=== PATIENT | female | born 1975 ===

== ENCOUNTER 2017-05-10 10:59 | Day surgery (SDC) | payer BC, OTHER ==
[2017-05-07 09:20] VITALS: BMI 28.3
[2017-05-10] MEDS ORDERED: Propofol 10 mg/ml Inj (20 ML) ONE (11:18)
[2017-05-10] MEDS ORDERED: Midazolam 2 MG/2 ML VIAL ONE (11:18)
[2017-05-10] MEDS ORDERED: ePHEDrine 50 mg/ml Inj ONE ×2 (11:18→13:02)
[2017-05-10] MEDS ORDERED: Rocuronium 10 mg/ml (5 ml) ONE (11:18)
[2017-05-10] MEDS ORDERED: Succinylcholine 200 mg/10 ml Inj IV ONE (11:20)
[2017-05-10] MEDS ORDERED: Lidocaine 4% (Laryng-O-Jet) Kit MM ONE (11:22)
[2017-05-10] MEDS ORDERED: Bupivacaine 0.5% Inj(30mL) ONE (11:23)
[2017-05-10 11:31] LABS: BASO # 0.1 K/uL (0.0-0.2); BASO % 1.2 % (0.0-2.0); EOS # 0.1 K/uL (0.0-0.7); EOS % 1.4 % (0.0-4.0); HEMATOCRIT 37.7 % (34.0-47.0); LYMPH # 1.7 K/uL (1.0-4.3); LYMPH % 35.1 % (20.0-40.0); MEAN CELL VOLUME 80.7 fl (81.0-99.0); MEAN CORPUSCULAR HEMOGLOBIN 26.8 pg (27.0-31.0); MEAN CORPUSCULAR HGB CONC 33.3 g/dL (33.0-37.0); MEAN PLATELET VOLUME 7.9 fl (7.2-11.7); MONO # 0.3 K/uL (0.0-0.8); NEUT # 2.7 K/uL (1.8-7.0); NEUT % 56.3 % (50.0-75.0); NRBC % 0.2 % (0.0-0.0); RED CELL DISTRIBUTION WIDTH 14.1 % (11.5-14.5); WHITE BLOOD COUNT 4.8 K/uL (4.8-10.8)
[2017-05-10] MEDS ORDERED: Lactated Ringer's 1,000 ML IV ONE ×2 (12:30→12:40)
[2017-05-10] MEDS ORDERED: Dexamethasone 4 mg/1 ml ONE (13:02)
[2017-05-10] MEDS ORDERED: Neostigmine Methylsulfate 3mg/3ml Syringe IV ONE (14:21)
[2017-05-10] MEDS: HYDROmorphone 0.5 mg/0.5 ml ISec IVP PRN ×4 (15:37→16:02)
[2017-05-10] MEDS: Lactated Ringer's 1,000 ML IV SCH ×2 (16:16→16:27)
[2017-05-10 16:27] VITALS: O2SAT 100
[2017-05-10 17:23] VITALS: RESP 18
[2017-05-10] MEDS ORDERED: Oxycodone/Acetaminophen 5/325 mg Tab PO ONE ×2 (18:12→18:19)
[2017-05-10 19:10] VITALS: BP 109/69; PULSE 88; TEMP 98.1
--- NOTE | 2017-05-17 10:56 | PCM.OP ---
Operative Report - Operative Report Date of Surgery/Procedure: 05/10/17 Time of Surgery/Procedure: 08:00 Surgeon: Dr. Shaun Thornton Colorist Dyer: Dr. Huey Hall Anesthesia/Sedation: general/Dr. Franco Pre-Operative Diagnosis: Endometriosis and abdominal pain Post-Operative Diagnosis: same Indication for Surgery: Endometriosis and abdominal pain Operative Findings: same Procedure/Operation Description: 1-Lysis of intestinal, abdominal wall and omental adhesions. Brief Histroy: This 42 year old woman was brought to the operating room by Dr. Hall when he intiated the laparoscopic portion of the robotic procedure. Upon enetering with videoscopy multiple dense adhesions were imediately encountered obsuring the possibilty to place the remaining tocars. Intraoperative general surgey consultation was obtained. Description of the Procedure: Dr. Rafael woodard intiated the procedure and after placing the umbilical trocar multiple dense adhsions invovlving the intestines, abdomial wall and omentum were encountered. A small 5 mm torcar was pleced stratigically and with the aid of electrocautery using blunt and using blunt and sharp dissection the adhesions were lysed including small bowel and omentum while these from the anterior abdominal wall. Once this was completed the remianing trocars were placed and the operation was turned over to Dr. Hall ( separate dictation Dr. Hall). Estimated Blood Loss: 5 cc Complications: none Discharge & Condition: stable
--- NOTE | 2017-05-19 22:53 | OP ---
PROCEDURE DATE: 05/10/2017 SURGEON: Dr. Huey Hall. CLINICAL DATA RESEARCH: Dr. Shaun Thornton MD PREOPERATIVE DIAGNOSES: Pelvic pain, bladder pain, abdominal pain, back pain, ovarian remnant syndrome, endometriosis of the pelvis, pudendal nerve entrapment, endometriosis, and dyspareunia. POSTOPERATIVE DIAGNOSES: Pelvic pain, bladder pain, abdominal pain, back pain, ovarian remnant syndrome, endometriosis of the pelvis, pudendal nerve entrapment, endometriosis, ovarian remnant syndrome, pelvic adhesions, and dyspareunia. PROCEDURE: Cystoscopy with bilateral stent placement and injection of IC green dye in the left and right ureter. Robotic laparoscopy, Excision of endometriosis, bilateral ureterolysis left pudendal neurolysis, Right Sapligo oophorectomy. separately to be dictated by Dr. Thornton is a lysis of adhesion. COMPLICATIONS: None. SPECIMENS: Multiple specimens including left periureteral endometriosis, vaginal cuff endometriosis, left pelvic side wall endometriosis, right vaginal cuff endometriosis, right pelvic side wall endometriosis and right ovary and tube. INDICATION FOR THE PROCEDURE: This is a patient with a very long history of pelvic pain who underwent multiple surgical procedures by multiple surgeons to try to address her pain. She has a known history of endometriosis and she had undergone a hysterectomy and allegedly a bilateral oophorectomy by other surgeons, which had failed to address her problems. She persisted having both anterior and posterior pain, also like pain sitting down consistent with a pudendal neuralgia, which was not relieved by multiple treatments including injections of nerve blocks and multiple medical therapies. Prior to the surgery, the patient was counseled with how complicated her surgery was going to be that she was a risk for both bowel injury as well as nerve injury. She also understood that the surgery may or may not ameliorate her symptoms and that because of her prior history of surgeries, it was necessary to identify ureters and place stents given the complication of this operation. The patient verbalized an understanding, was seen multiple times in the office and prior to the surgery, she reconfirmed the desire to move forward with the surgery. She signed the consent and she was taken to the OR. DESCRIPTION OF THE PROCEDURE: After adequate anesthesia was obtained, the patient was placed in the dorsal lithotomy position. She was prepped and draped. The surgeon gown and gloved. At this point, a time out was taken after she was placed under anesthesia and the procedure was commenced. The cystoscope was introduced into the bladder under direct visualization. The bladder was distended and irvin cystoscopy was performed, with attention to both ureteral orifices which were normal anatomical position. The left ureteral orifice was then catheterized with a British open-ended urethral catheter. A solution of ICG was then injected for a total of 4 mL in the left ureter after the ureteral catheter stent was advanced into the distal ureter. The ureteral catheter was then removed. Attention was paid to the right ureteral orifice. At this point, a ureteral catheter was advanced to the level of the right distal ureter. An additional 4 mL of IC green were injected in to the right ureter. The ureteral catheter was then removed. The bladder was then inspected and noted to be free of tumor, stones, or bleeding sources. Also there was no evidence of interstitial cystitis. The cystoscope was then removed and a 16-British Menard catheter was then placed. At this point, attention was on the abdominal area where a very careful open laparoscopy technique was performed. An incision was made under the umbilicus and through this incision, a progressive dissection was performed and the fascia was entered. The peritoneum was entered in a blunt fashion and a blunt trocar was placed. At this point, multiple adhesions were noticed in the pelvis including the extensive adhesions with the omentum. A right lower quadrant trocar was placed in an open area with less adhesions and a left upper quadrant trocar was also applied as well as a left main quadrant. At this point, an extensive lysis of adhesions was performed by general surgeon, Dr. Shaun Thornton who was called then as the adhesions were quite extensive. He will dictate these adhesions separately. At this point, attention was in the pelvis. Upon looking at the pelvis, we immediately noticed multiple areas lined with endometriosis typical type lesions, brown lesions, as well as white lesions, most of them active, most of them with a granulomatous type of appearance. The first part of procedure was on the left hand side where the cuff appeared to be bundled and retracted and at this point utilizing florescent, the ureter was identified. The peritoneum was incised avoiding the ureter and a dissection was made dissecting off an area of endometriosis all the way deep into the pelvis, freeing the left perirectal space, although in a deep way all the way down to the pudendal nerve area and an area of granulomatous tissue containing endometriosis and an aggregate of inflammatory tissue was removed and sent to pathology. Upon inspection, the area appeared to be free on compression and the nerve bundle appeared to be decompressed. At this point, attention was on the vaginal cuff where again an area of endometriosis was identified after dissecting the bladder off, this whole area of granulomatous area was also excised. Attention was then on the left pelvic side wall where after identifying the ureter, the retroperitoneal space was entered. Ureter was lateralized and dissected and an area of peritoneum inflamed was also excised. Attention was then on the right pelvic side wall where again utilizing fluorescent, the peritoneum was entered. The ureter was identified, dissected. It was a quite complex dissection as the ureter was quite "sticky" given the vision prior to surgery, so it was laborious dissection and an area of peritoneum containing inflammatory type endometriosis was also excised. At this point, attention was on the right pelvic side wall where a mass that appeared to be on a ovarian remnant was on the pelvic rim. This was elevated and a progressive dissection was performed where the mass was dissected and lysed off the underlying peritoneum and right on top of the iliac vessels and with a extra careful dissection, the vascular bundle was coagulated and the sample was sent to pathology. It was ovarian remnant with fallopian tube . At this point, she was checked for hemostasis and appeared to be excellent. The robot was undocked. The abdomen was desufflated. The instruments were removed. The incision was closed in layers with 0 PDS for the fascia and 4-0 Monocryl for the skin. At the end of the procedure, all tapes and instruments counts were correct. The patient tolerated the procedure well and was taken to recovery room in excellent condition. Huey Hall MD MICHAELA
== END 2017-05-10 19:46 | disposition home or self-care (01) ==
LOC: H.OPSURG 10:59
PROVIDERS: ATTEND Obstetrics & Gynecology Reproductive Endocrinology
DX: R10.2 Pelvic and perineal pain (principal); R39.89 Other symptoms and signs involving the genitourinary system; N80.3 Endometriosis of pelvic peritoneum; N94.19 Other specified dyspareunia; N73.6 Female pelvic peritoneal adhesions (postinfective)
CPT/HCPCS: 36415; 49329; 52007; 58661; 58662; 64708; 85025; 86850; 86900; 88305; C1729; J0330; J0690; J1100; J1170; J2001; J2250; J2405; J2704; J2710; J3010; J7030; J7040; J7120